=== PATIENT | female | born 1970 ===

== ENCOUNTER 2018-04-06 07:30 | Day surgery (SDC) | payer OTHER | END 2018-04-06 12:45 | disposition home or self-care (01) | LOC: AMB-ENDOS 07:30 | DX: D12.0 Benign neoplasm of cecum (principal); D12.2 Benign neoplasm of ascending colon ==

== ENCOUNTER 2019-04-01 10:14 | Outpatient (CLI) | payer OTHER | END 2019-04-01 14:02 | disposition home or self-care (01) | LOC: SONOGRAMA 10:14 | DX: E04.1 Nontoxic single thyroid nodule (principal) ==